=== PATIENT | female | born 1950 | race Caucasian/White ===

== ENCOUNTER → 2018-04-03 09:43 | Outpatient (CLI) | payer MEDICARE, OTHER, SELFPAY ==
--- NOTE | 2018-04-03 15:39 | PFTCOMP ---
COMPLETE PULMONARY FUNCTION TEST INTERPRETATION Brief HPI: Patient is a 68 year old female, currently under the care of myself, who presents to [facility] for complete pulmonary function tests secondary to diagnosis of COPD. Respiratory therapist reports good effort and reproducible results. Interpretation: Forced expiration spirometry shows a severe large airways obstructive ventilatory defect with an FEV1 of 49% predicted. There is no significant bronchodilator response by strict ATS criteria. Spirograms are of good quality and plateau slowly, indicating slowly emptying areas of the lungs. The respiratory flow volume loop shows decreased expiratory flow rates at all lung volumes consistent with airway obstruction. Lung volumes by body plethysmography show a normal total lung capacity at 5.54 L, 102% predicted. FRC and RV are elevated out of proportion. Lung volume measurements are consistent with air-trapping. Diffusion capacity by carbon monoxide is decreased at 39% predicted. The airway resistance is elevated. Compared to previous pulmonary function tests from 03/27/2017, there has been no significant change. Impression: Irreversible severe large airways obstructive ventilatory defect with a symmetric reduction diffusing capacity and no significant loom changer the last year.
--- NOTE | 2018-04-03 15:42 | PFTCOMP_ITS ---
COMPLETE PULMONARY FUNCTION TEST INTERPRETATION Brief HPI: Patient is a 68 year old female, currently under the care of myself, who presents to [facility] for complete pulmonary function tests secondary to diagnosis of COPD. Respiratory therapist reports good effort and reproducible results. Interpretation: Forced expiration spirometry shows a severe large airways obstructive ventilatory defect with an FEV1 of 49% predicted. There is no significant bronchodilator response by strict ATS criteria. Spirograms are of good quality and plateau slowly, indicating slowly emptying areas of the lungs. The respiratory flow volume loop shows decreased expiratory flow rates at all lung volumes consistent with airway obstruction. Lung volumes by body plethysmography show a normal total lung capacity at 5.54 L , 102% predicted. FRC and RV are elevated out of proportion. Lung volume measurements are consistent with air-trapping. Diffusion capacity by carbon monoxide is decreased at 39% predicted. The airway resistance is elevated. Compared to previous pulmonary function tests from 03/27/2017, there has been no significant change. Impression: Irreversible severe large airways obstructive ventilatory defect with a symmetric reduction diffusing capacity and no significant slip box changer the last year.
== END ==
PROVIDERS: Family Provider Family Medicine; PCP Family Medicine; Visit Provider Internal Medicine Critical Care Medicine
DX: J44.9 Chronic obstructive pulmonary disease, unspecified (principal)
CPT/HCPCS: 94060; 94726; 94729

== ENCOUNTER → 2018-04-04 10:44 | Outpatient (CLI) | payer MEDICARE, OTHER, SELFPAY ==
[2018-04-04 11:22] VITALS: PULSE 101; PULSE 102; PULSE 103; PULSE 76; PULSE 80; PULSE 90; PULSE 95; PULSE 98; O2SAT 89; O2SAT 90; O2SAT 93; O2SAT 94
--- NOTE | 2018-04-04 15:12 | WT_ITS ---
PSN 6 Minute Walk Test - 6 Minute Walk Test 6 Minute Walk Test: 6 Minute Walk Test PSN:6-Minute Walk Test Start: 04/04/18 11: 21 Freq: Status: Active Protocol: RESP.6MINW Document 04/04/18 11:22 RENÉE (Rec: 04/04/18 11:25 RENÉE [id number]) 6 Minute Walk Test Date Performed 04/04/18 Time Performed 11:00 Height 5 ft 7 in Weight: 77.111 kg Weight in Pounds 170.[address]: Ho Coto Assistive device used: None Pre-test Oxygen Delivery Method Room Air Pulse Ox (%) 94 Pulse Rate (60-100 beats/min) 76 Dyspnea Aubrey Scale (0-10) 0 Exertion Aubrey Scale (6-20) 6 1st minute Oxygen Delivery Method Room Air Pulse Ox (%) 93 Pulse Rate (60-100 beats/min) 90 2nd minute Oxygen Delivery Method Room Air Pulse Ox (%) 89 Pulse Rate (60-100 beats/min) 95 3rd minute Oxygen Delivery Method Room Air Pulse Ox (%) 89 Pulse Rate (60-100 beats/min) 98 4th minute Oxygen Delivery Method Room Air Pulse Ox (%) 89 Pulse Rate (60-100 beats/min) 101 H 5th minute Oxygen Delivery Method Room Air Pulse Ox (%) 90 Pulse Rate (60-100 beats/min) 102 H 6th minute Oxygen Delivery Method Room Air Pulse Ox (%) 90 Pulse Rate (60-100 beats/min) 103 H Dyspnea Aubrey Scale (0-10) 0 Exertion Aubrey Scale (6-20) 13 Post-test Oxygen Delivery Method Room Air Pulse Ox (%) 93 Pulse Rate (60-100 beats/min) 80 Full Laps Walked 15 Partial Lap, Number of Tiles Walked 12 Total Distance Walked (ft) 897 - Interpretation Interpretation: The patient was able to ambulate 897 feet over the course of 6 minutes on room air with no assistive devices or breaks. The patient did experience significant desaturation as low as 89% with reflexive tachycardia. These findings are consistent with a respiratory limitation exercise tolerance. - Recommendations Recommendations: No supplemental oxygen is indicated at this time. However, patient will need to be followed closely given level of desaturation.
== END ==
PROVIDERS: Family Provider Family Medicine; PCP Family Medicine; Visit Provider Internal Medicine Critical Care Medicine
DX: J44.9 Chronic obstructive pulmonary disease, unspecified (principal)
CPT/HCPCS: 94618

== ENCOUNTER → 2018-12-26 12:46 | Outpatient (CLI) | payer MEDICARE, OTHER, SELFPAY ==
[2018-04-11 09:46] VITALS: BMI 26.9
--- NOTE | 2018-12-26 12:49 | CT_ITS ---
STUDY: CT CHEST WITHOUT CONTRAST REASON FOR EXAM: Female, 68 years old. Follow-up lung nodule with history of COPD. RADIATION DOSAGE (If Supplied By Facility): CTDIvol = ( 9.97 ) mGy, DLP = ( 356.39 ) mGycm TECHNIQUE: Transaxial imaging was performed without the administration of intravenous contrast material. : Sagittal 2-D MPR Individualized dose optimization techniques were used for this CT. COMPARISON: No prior imaging is available for comparison.. FINDINGS: Supraclavicular: Small thyroid nodules. No dominant nodule. Body wall soft tissues: No acute process. Upper abdomen: No acute process. Osseous structures: Kyphoscoliosis, mild thoracic spondylosis, osteopenia. No acute osseous process. Mediastinum: Normal esophagus. A few small chronic-appearing lymph nodes are present in the mediastinum, none pathologically enlarged. There is no evidence of hilar lymphadenopathy. Cardiovascular: No cardiomegaly or pericardial effusion. Mild cardiac calcifications are visible in the proximal circumflex distribution. Nondilated aorta with mild arch atherosclerosis. Ectatic central pulmonary arteries, main pulmonary artery 3.19 cm. Lungs: Moderate features of centrilobular emphysema at the apices. Biapical pleural parenchymal scar. There are a few small isolated pulmonary nodules, measuring less than 4 mm. Anterior aspect of the right upper lobe and left upper lobe anterior segments, small subsegmental regions of interstitial reticulation and tree-in-bud nodular opacity in a pattern consistent with sequela from prior infectious process. A similar region of clustered tree-in-bud nodular opacities and parenchymal reticulation is present at the base of the left lower lobe, chronic. There is mild bronchial wall thickening bibasilar, associated with mild central bronchiectasis. Right lower lobe bronchus, inspissated or aspirated material, bubbly, over a very short segment measuring approximately 11 mm. This process is centered on axial series 4 image 66. Fine image saved to the PACS archive. Associated with more prominent bronchial wall thickening in that segment and in the subsegmental bronchi just distal. Consistent with acute on chronic bronchiolitis. CT/Chest without Contrast IMPRESSION: Emphysema. Scattered small pulmonary nodules less than 4 mm. Nonspecific. Based on the ACR lung RADS criteria, follow-up low-dose chest CT is recommended in 1 year for surveillance purposes. Evidence of acute on chronic bronchial wall inflammation, bronchitis, associated with chronic tree-in-bud nodular opacities in a few pulmonary segments, most prominent at the left lung base. Active bronchial inflammation/infection is present in the right lower lobe. The features elsewhere are likely chronic. Electronically Signed: Lukasz Murillo MD at 14:10 EST Tel , Service support ,
== END ==
PROVIDERS: Family Provider Family Medicine; PCP Family Medicine; Referring Provider Nurse Practitioner Acute Care; Visit Provider Nurse Practitioner Acute Care
DX: R91.1 Solitary pulmonary nodule (principal)
CPT/HCPCS: 71250

== ENCOUNTER → 2019-04-16 | Outpatient (CLI) | payer MEDICARE, OTHER, SELFPAY ==
[2019-01-09 10:32] VITALS: BMI 27.8
--- NOTE | 2019-04-16 15:46 | PFTCOMP_ITS ---
COMPLETE PULMONARY FUNCTION TEST INTERPRETATION Brief HPI: Patient is a 69 year old female, currently under the care of myself, who presents to [facility] for complete pulmonary function tests secondary to diagnosis of COPD. Respiratory therapist reports good effort and reproducible results. Interpretation: Forced expiration spirometry shows a severe large airways obstructive ventilatory defect with an FEV1 of 49% predicted. There is a significant bronchodilator response in FVC by strict ATS criteria. Spirograms are of good quality and plateau slowly, indicating slowly emptying areas of the lungs. The respiratory flow volume loop shows decreased expiratory flow rates at all lung volumes consistent with airway obstruction. Lung volumes by body plethysmography show a normal total lung capacity at 4.99 L, 92% predicted. FRC and RV are elevated out of proportion. Lung volume measurements are consistent with air-trapping. Diffusion capacity by carbon monoxide is decreased at 42% predicted. The airway resistance is elevated. Compared to previous pulmonary function tests from 04/03/2018, there has been no significant change. Impression: Partially reversible severe large airways obstructive ventilatory defect with a symmetric reduction diffusing capacity, consistent with patient's diagnosis of COPD.
== END | disposition home or self-care (01) ==
PROVIDERS: Family Provider Family Medicine; PCP Family Medicine; Referring Provider Nurse Practitioner Acute Care; Visit Provider Nurse Practitioner Acute Care
DX: J44.9 Chronic obstructive pulmonary disease, unspecified (principal)
CPT/HCPCS: 94060; 94726; 94729

== ENCOUNTER → 2019-04-19 | Outpatient (CLI) | payer MEDICARE, OTHER, SELFPAY ==
[2019-01-09 10:32] VITALS: BMI 27.8
[2019-04-19 12:58] VITALS: PULSE 100; PULSE 102; PULSE 106; PULSE 108; PULSE 109; PULSE 80; PULSE 83; PULSE 87; O2SAT 91; O2SAT 92; O2SAT 93; O2SAT 95
--- NOTE | 2019-04-19 14:35 | PCM.PSN.6M ---
PSN 6 Minute Walk Test - 6 Minute Walk Test 6 Minute Walk Test: 6 Minute Walk Test PSN:6-Minute Walk Test Start: 04/19/19 12:58 Freq: Status: Active Protocol: RESP.6MINW Document 04/19/19 12:58 [facility] (Rec: 04/19/19 13:01 [facility] [id number]) 6 Minute Walk Test Date Performed 04/19/19 Time Performed 11:00 Height 5 ft 7 in Weight: 77.111 kg Weight in Pounds 170.[address]: Beatriz Saul Assistive device used: None Pre-test Oxygen Delivery Method Room Air Pulse Ox (%) 95 Pulse Rate (60-100 beats/min) 83 Dyspnea Aubrey Scale (0-10) 0 1st minute Oxygen Delivery Method Room Air Pulse Ox (%) 93 Pulse Rate (60-100 beats/min) 87 Dyspnea Aubrey Scale (0-10) 0 2nd minute Oxygen Delivery Method Room Air Pulse Ox (%) 91 Pulse Rate (60-100 beats/min) 100 Dyspnea Aubrey Scale (0-10) 0 3rd minute Oxygen Delivery Method Room Air Pulse Ox (%) 92 Pulse Rate (60-100 beats/min) 102 H Dyspnea Aubrey Scale (0-10) 1 4th minute Oxygen Delivery Method Room Air Pulse Ox (%) 91 Pulse Rate (60-100 beats/min) 106 H Dyspnea Aubrey Scale (0-10) 1 5th minute Oxygen Delivery Method Room Air Pulse Ox (%) 91 Pulse Rate (60-100 beats/min) 109 H Dyspnea Aubrey Scale (0-10) 1 6th minute Oxygen Delivery Method Room Air Pulse Ox (%) 91 Pulse Rate (60-100 beats/min) 108 H Dyspnea Aubrey Scale (0-10) 1 Post-test Oxygen Delivery Method Room Air Pulse Ox (%) 95 Pulse Rate (60-100 beats/min) 80 Dyspnea Aubrey Scale (0-10) 0 Full Laps Walked 19 Partial Lap, Number of Tiles Walked 12 Total Distance Walked (ft) 1133 - Interpretation Interpretation: The patient was able to ambulate 1133 feet over the course of 6 minutes on room air with no assistive devices or breaks. The patient did desaturate as low as 91% and had some reflexive tachycardia. These findings are consistent with a respiratory limitation to exercise tolerance. - Recommendations Recommendations: No supplemental oxygen is indicated at this time, but patient will need to be followed closely given level of desaturation.
== END | disposition home or self-care (01) ==
LOC: PSN 11:09
PROVIDERS: Referring Provider Nurse Practitioner Acute Care; Visit Provider Nurse Practitioner Acute Care
DX: J44.9 Chronic obstructive pulmonary disease, unspecified (principal)
CPT/HCPCS: 94618

== ENCOUNTER → 2020-06-03 | Outpatient (CLI) | payer MEDICARE, OTHER, SELFPAY ==
[2019-10-28 09:57] VITALS: BMI 27.6
--- NOTE | 2020-06-04 08:57 | PFT ---
INTRODUCTION: The patient is a 70-year-old female who presents for pulmonary function studies secondary to a diagnosis of COPD. Respiratory therapy reports good patient effort. Bronchodilators were used during testing. INTERPRETATION: Forced expiration spirometry demonstrates the presence of a severe large airways obstructive ventilatory defect. There was no significant response to aerosolized bronchodilators. Spirograms are of good quality and do not plateau indicating slow emptying of the lungs. Body plethysmography was performed and revealed an elevated RV to 145% of predicted, indicative of underlying air trapping. Diffusing capacity by single breath CO is reduced at 43% of predicted. IMPRESSION: Irreversible severe large airways obstructive ventilatory defect with associated air trapping and symmetric reduction in diffusing capacity.
== END | disposition home or self-care (01) ==
PROVIDERS: PCP Family Medicine; Referring Provider Nurse Practitioner Acute Care; Visit Provider Nurse Practitioner Acute Care
DX: J44.9 Chronic obstructive pulmonary disease, unspecified (principal)
CPT/HCPCS: 94060; 94726; 94729

== ENCOUNTER → 2020-06-09 | Outpatient (CLI) | payer MEDICARE, OTHER, SELFPAY ==
[2019-10-28 09:57] VITALS: BMI 27.6
[2020-06-09 14:02] VITALS: PULSE 77; PULSE 78; PULSE 92; PULSE 93; PULSE 94; PULSE 95; PULSE 96; O2SAT 86; O2SAT 90; O2SAT 91; O2SAT 92; O2SAT 93; O2SAT 94
--- NOTE | 2020-06-09 14:04 | CPS ---
Patient started testing on room air, does not wear oxygen at home. By the 1st minute, SpO2 86%. Placed patient on 2 lpm oxygen and recovered to 92%. Patient walked the rest of the test on 2 lpm O2 without desaturations below 90%. Patient states she has an appointment with Dr. Coto next week and would like to discuss oxygen setup with him then. Explained the importance of maintaining an SpO2 >90% with the patient and she verbalizes understanding.
--- NOTE | 2020-06-10 06:40 | PCM.PSN.6M ---
PSN 6 Minute Walk Test - 6 Minute Walk Test 6 Minute Walk Test: 6 Minute Walk Test PSN:6-Minute Walk Test Start: 06/09/20 14:02 Freq: Status: Active Protocol: RESP.6MINW Document 06/09/20 14:02 RENÉE (Rec: 06/09/20 14:07 RENÉE [id number]) 6 Minute Walk Test Date Performed 06/09/20 Time Performed 13:30 Height 5 ft 6 in Weight: 77.111 kg Weight in Pounds 170.[address]: Ho Coto Assistive device used: None Pre-test Oxygen Delivery Method Room Air Pulse Ox (%) 90 Pulse Rate (60-100 beats/min) 78 Dyspnea Aubrey Scale (0-10) 0.5 Exertion Aubrey Scale (6-20) 6 1st minute Oxygen Delivery Method Room Air Pulse Ox (%) 86 Pulse Rate (60-100 beats/min) 92 2nd minute Oxygen Flow Rate (L/min) (L/min) 2 Oxygen Delivery Method Nasal Cannula Pulse Ox (%) 94 Pulse Rate (60-100 beats/min) 93 3rd minute Oxygen Flow Rate (L/min) (L/min) 2 Oxygen Delivery Method Nasal Cannula Pulse Ox (%) 92 Pulse Rate (60-100 beats/min) 94 4th minute Oxygen Flow Rate (L/min) (L/min) 2 Oxygen Delivery Method Nasal Cannula Pulse Ox (%) 90 Pulse Rate (60-100 beats/min) 95 5th minute Oxygen Flow Rate (L/min) (L/min) 2 Oxygen Delivery Method Nasal Cannula Pulse Ox (%) 91 Pulse Rate (60-100 beats/min) 94 6th minute Oxygen Flow Rate (L/min) (L/min) 2 Oxygen Delivery Method Nasal Cannula Pulse Ox (%) 91 Pulse Rate (60-100 beats/min) 96 Dyspnea Aubrey Scale (0-10) 1 Exertion Aubrey Scale (6-20) 13 Post-test Oxygen Flow Rate (L/min) (L/min) 2 Oxygen Delivery Method Nasal Cannula Pulse Ox (%) 93 Pulse Rate (60-100 beats/min) 77 Full Laps Walked 12 Partial Lap, Number of Tiles Walked 0 Total Distance Walked (ft) 708 06/09/20 14:04 Cardiopulmonary Services by Rachel Avery Patient started testing on room air, does not wear oxygen at home. By the 1st minute, SpO2 86%. Placed patient on 2 lpm oxygen and recovered to 92%. Patient walked the rest of the test on 2 lpm O2 without desaturations below 90%. Patient states she has an appointment with Dr. Coto next week and would like to discuss oxygen setup with him then. Explained the importance of maintaining an SpO2 >90% with the patient and she verbalizes understanding. Initialized on 06/09/20 14:04 - END OF NOTE - Interpretation Interpretation: The patient was noted to be 90% on room air at rest. The patient did desaturate to 86% in the first minute of ambulation. Patient was placed on 2 L nasal cannula with improvement at 92% was able to complete the walking study. In total, the patient traveled 708 feet over the course of 6 minutes with the assistance of one break. These findings are consistent with a respiratory limitation exercise tolerance. - Recommendations Recommendations: No supplemental oxygen is needed at rest, but patient should be using 2 L nasal cannula with any exertion.
== END | disposition home or self-care (01) ==
LOC: PSN 13:17
PROVIDERS: PCP Family Medicine; Referring Provider Nurse Practitioner Acute Care; Visit Provider Nurse Practitioner Acute Care
DX: J44.9 Chronic obstructive pulmonary disease, unspecified (principal)
CPT/HCPCS: 94618

== ENCOUNTER → 2020-11-23 13:13 | Outpatient (CLI) | payer MEDICARE, OTHER, SELFPAY ==
[2020-06-16 05:45] VITALS: BMI 28.5
--- NOTE | 2020-11-23 13:15 | CT_ITS ---
STUDY: CT CHEST WITHOUT CONTRAST- LOW DOSE SCREENING PROTOCOL REASON FOR EXAM: Female, 70 years old. Current smoker. 51 pack per year history. No current symptoms of lung cancer or pulmonary infection. Shared decision-making with referring PCP documented in patient''s record. RADIATION DOSAGE (If Supplied By Facility): CTDIvol = ( 3.02 ) mGy, DLP = ( 100.05 ) mGycm TECHNIQUE: Low dose screening CT examination performed from the base of the neck to the upper abdomen. Sagittal and coronal reformatted images performed. Sagittal and coronal MIP images provided. The measurements provided are average, rounded measurements per ACR guidelines. COMPARISON: 12/26/2018 FINDINGS: No change in bilateral apical scarring. Mild emphysematous changes. Mild diffuse cylindrical bronchiectasis and bronchial wall thickening. No noncalcified nodule or mass. There is no demonstrated pleural abnormality. Normal heart and pericardium. There are calcifications of the coronary arteries. Normal mediastinum. Normal hilar regions. Normal unenhanced pulmonary arteries. There is atherosclerotic calcification of the aortic arch with tortuosity and elongation of the aortic arch and descending thoracic aorta. Normal osseous structures. There is no demonstrated abnormality of the visualized upper abdomen. CT/Low Dose CT Lung Screening IMPRESSION: 1. No significant indeterminate incidental findings requiring additional imaging. 2. Incidental findings include mild emphysema, cylindrical bronchiectasis and bronchial wall thickening, and bilateral apical scarring.. ASSESSMENT CATEGORY: LungRADS 1 - Negative. Continue annual screening with LDCT in 12 months, per established ACR guidelines. Electronically Signed: Lukasz Ruby MD at 17:36 EST Tel , Service support ,
== END ==
PROVIDERS: PCP Family Medicine; Referring Provider Nurse Practitioner Acute Care; Visit Provider Nurse Practitioner Acute Care
DX: F17.210 Nicotine dependence, cigarettes, uncomplicated (principal); Z12.2 Encounter for screening for malignant neoplasm of respiratory organs
CPT/HCPCS: 71271

== ENCOUNTER 2021-11-12 09:55 | Outpatient (CLI) | payer MEDICARE, OTHER, SELFPAY ==
[2021-11-12 10:32] LABS: Anion Gap 5 (5-15); BUN 9 mg/dL (7-18); BUN/Creat Ratio 14.3 RATIO (10-20); Calcium,Total 8.8 mg/dL (8.5-10.1); Chloride 111 mmol/L (98-107); Creatinine, Serum 0.63 mg/dL (0.55-1.02); EST Glomerular Filtration Rate 98 mL/min (>60); Est Glom Filt Rate - Afr Amer 119 mL/min (>60); Glucose 118 mg/dL (74-106); Potassium 4.1 mmol/L (3.5-5.1); Sodium Level 140 mmol/L (136-145)
== END 2021-11-12 23:59 | disposition short-term general hospital (02) ==
LOC: PAVLAB 09:57
PROVIDERS: Referring Provider Nurse Practitioner Acute Care; Visit Provider Nurse Practitioner Acute Care
DX: R06.02 Shortness of breath (principal); R76.0 Raised antibody titer; Z86.16 Personal history of COVID-19
CPT/HCPCS: 36415; 80048; 83880; 86769

== ENCOUNTER → 2022-02-22 | Outpatient (CLI) | payer MEDICARE, OTHER, SELFPAY ==
--- NOTE | 2022-02-23 06:59 | PFT ---
INTRODUCTION: The patient is a 72-year-old female that presents for pulmonary function studies secondary to a diagnosis of COPD. Respiratory therapy reported good patient effort. Bronchodilators were used during testing. INTERPRETATION: Forced expiration spirometry demonstrates the presence of a very severe large airways obstructive ventilatory defect. There was no significant response to aerosolized bronchodilators. Spirograms are of fair quality but do not plateau indicating slow emptying of the lungs. Body plethysmography was performed and revealed a decreased TLC to 2.85 L, 57% of predicted, indicative of a severe restrictive ventilatory impairment. Diffusing capacity by single breath CO is severely reduced at 31% of predicted. When compared to prior pulmonary function studies from May 2020 there has been significant worsening in the patient's FEV1 and DLCO. IMPRESSION: Irreversible very severe mixed ventilatory defect with symmetric reduction in diffusing capacity. There has been interval worsening in the patient's PFT since May 2020, as noted above.
== END | disposition home or self-care (01) ==
LOC: PSN 07:54
PROVIDERS: Referring Provider Internal Medicine Critical Care Medicine; Visit Provider Internal Medicine Critical Care Medicine
DX: J44.9 Chronic obstructive pulmonary disease, unspecified (principal)
CPT/HCPCS: 94060; 94726; 94729

== ENCOUNTER → 2022-02-24 | Outpatient (CLI) | payer MEDICARE, OTHER, SELFPAY ==
[2022-02-24 11:57] VITALS: PULSE 100; PULSE 101; PULSE 102; PULSE 81; PULSE 86; PULSE 93; PULSE 96; O2SAT 87; O2SAT 92; O2SAT 93; O2SAT 94; O2SAT 95
--- NOTE | 2022-02-24 12:00 | CPS ---
Patient has home oxygen established through [employer]. She was placed on room air prior to testing. RA Spo2 at 87% therefore walk began with patient on 2LPM continuous flow. She remained on this throughout remainder of test. She declined need for rest breaks.
--- NOTE | 2022-02-25 08:01 | WT_ITS ---
PSN 6 Minute Walk Test 6 Minute Walk Test 6 Minute Walk Test: 6 Minute Walk Test PSN:6-Minute Walk Test Start: 02/24/22 11:56 Freq: Status: Active Protocol: RESP.6MINW Document 02/24/22 11:57 [facility] (Rec: 02/24/22 12:02 [facility] [id number]) 6 Minute Walk Test Date Performed 02/24/22 Time Performed 11:30 Height 5 ft 5 in Weight: 69.853 kg Weight in Pounds 154.[address]: Ho Coto Assistive device used: None Pre-test Oxygen Delivery Method Room Air Pulse Ox (%) 87 Pulse Rate (60-100 beats/min) 81 Dyspnea Aubrey Scale (0-10) 3 Reported Symptoms Increased Work of Breathing 1st minute Oxygen Flow Rate (L/min) (L/min) 2 Oxygen Delivery Method Nasal Cannula Pulse Ox (%) 94 Pulse Rate (60-100 beats/min) 93 Dyspnea Aubrey Scale (0-10) 4 Number of Rests Taken 0 Reported Symptoms Increased Work of Breathing 2nd minute Oxygen Flow Rate (L/min) (L/min) 2 Oxygen Delivery Method Nasal Cannula Pulse Ox (%) 92 Pulse Rate (60-100 beats/min) 96 Dyspnea Aubrey Scale (0-10) 5 Number of Rests Taken 0 Reported Symptoms Increased Work of Breathing 3rd minute Oxygen Flow Rate (L/min) (L/min) 2 Oxygen Delivery Method Nasal Cannula Pulse Ox (%) 94 Pulse Rate (60-100 beats/min) 100 Dyspnea Aubrey Scale (0-10) 5 Number of Rests Taken 0 Reported Symptoms Increased Work of Breathing 4th minute Oxygen Flow Rate (L/min) (L/min) 2 Oxygen Delivery Method Nasal Cannula Pulse Ox (%) 93 Pulse Rate (60-100 beats/min) 101 H Dyspnea Aubrey Scale (0-10) 5 Number of Rests Taken 0 Reported Symptoms Increased Work of Breathing 5th minute Oxygen Flow Rate (L/min) (L/min) 2 Oxygen Delivery Method Nasal Cannula Pulse Ox (%) 93 Pulse Rate (60-100 beats/min) 102 H Dyspnea Aubrey Scale (0-10) 5 Number of Rests Taken 0 Reported Symptoms Increased Work of Breathing 6th minute Oxygen Flow Rate (L/min) (L/min) 2 Oxygen Delivery Method Nasal Cannula Pulse Ox (%) 94 Pulse Rate (60-100 beats/min) 101 H Dyspnea Aubrey Scale (0-10) 5 Number of Rests Taken 0 Reported Symptoms Increased Work of Breathing Post-test Oxygen Flow Rate (L/min) (L/min) 2 Oxygen Delivery Method Nasal Cannula Pulse Ox (%) 95 Pulse Rate (60-100 beats/min) 86 Dyspnea Aubrey Scale (0-10) 3 Reported Symptoms Increased Work of Breathing Full Laps Walked 11 Partial Lap, Number of Tiles Walked 0 Total Distance Walked (ft) 649 02/24/22 12:00 Cardiopulmonary Services by Aileen Will Patient has home oxygen established through [employer]. She was placed on room air prior to testing. RA Spo2 at 87% therefore walk began with patient on 2LPM continuous flow. She remained on this throughout remainder of test. She declined need for rest breaks. Initialized on 02/24/22 12:00 - END OF NOTE Interpretation Interpretation: The patient ambulated 649 feet over the course of 6 minutes beginning on room air without assistive devices. Pretesting oxygen saturation was noted to be 87% on room air. Therefore, 2 L/min of oxygen was applied to begin the test. Oxygen saturations subsequently improved to 94%. With ambulation, the sulema oxygen saturation was 92%. Recommendations Recommendations: 2 L/min of supplemental oxygen should be utilized both at rest and with exertion.
== END | disposition home or self-care (01) ==
LOC: PSN 11:07
PROVIDERS: Visit Provider Internal Medicine Critical Care Medicine
DX: J44.9 Chronic obstructive pulmonary disease, unspecified (principal)
CPT/HCPCS: 94618

== ENCOUNTER → 2022-06-13 | Outpatient (CLI) | payer MEDICARE, OTHER, SELFPAY ==
--- NOTE | 2022-06-13 12:47 | ECHOCS_ITS ---
Reason For Study: PHTN Procedure This was a 2D Doppler, Color Flow transthoracic echocardiogram. The exam was of adequate technical quality. Exam performed in department. Left Ventricle Normal LV size. Left ventricular systolic function is normal. The estimated ejection fraction is 65 %. No evidence for diastolic dysfunction. No regional wall motion abnormalities noted. Right Ventricle Normal RV size. Normal systolic function. Atria Normal left atrium. Normal right atrium. No doppler evidence for ASD. Mitral Valve There is no mitral annular calcification. Normal mitral valve. Trivial mitral valve insufficiency. Tricuspid Valve Normal tricuspid valve. Mild to moderate (1-2+) tricuspid valve insufficiency. Right ventricular systolic pressure estimated to be 41 mmHg. Aortic Valve Trisinus/trileaflet aortic valve. Normal aortic valve. Pulmonic Valve The pulmonic valve is not well visualized. Great Vessels Normal sized aortic root. Pericardium/Pleural No pericardial effusion. MMode/2D Measurements & Calculations RVDd: 2.8 cm Ao root diam: 3.4 cm LAV(MOD-sp4): 31.4 ml LVAd ap4: 20.3 cm2 SV(MOD-sp4): 28.5 ml SV(sp4-el): 31.3 ml LVLd ap4: 7.6 cm EDV(MOD-sp4): 43.1 ml EDV(sp4-el): 45.7 ml LVAs ap4: 10.8 cm2 LVLs ap4: 6.8 cm ESV(MOD-sp4): 14.6 ml ESV(sp4-el): 14.5 ml EF(MOD-sp4): 66.1 % EF(sp4-el): 68.4 % LA A4 area: 13.9 cm2 LA dimension(2D): 4.1 cm RA A4 area: 15.4 cm2 Time Measurements MV dec time: 0.26 sec Doppler Measurements & Calculations MV E max rachid: 85.0 cm/sec Lat Peak E' Rachid: 11.5 cm/sec Med Peak E' Rachid: 7.8 cm/sec MV A max rachid: 80.5 cm/sec E/E' lat: 7.4 E/E' med: 10.9 MV E/A: 1.1 MV V2 max: 99.6 cm/sec Ao V2 max: 176.2 cm/sec MV max P.0 mmHg MV dec slope: 325.8 cm/sec2 Ao max P.4 mmHg MV V2 mean: 69.3 cm/sec Ao V2 mean: 123.9 cm/sec MV mean P.1 mmHg Ao mean P.0 mmHg MV V2 VTI: 34.8 cm Ao V2 VTI: 42.6 cm LV V1 max: 145.3 cm/sec PA V2 max: 97.5 cm/sec TR max rachid: 288.2 cm/sec LV V1 max P.4 mmHg PA V2 mean: 70.7 cm/sec TR max P.2 mmHg LV V1 mean P.1 mmHg LV V1 mean: 107.2 cm/sec LV V1 VTI: 33.9 cm ECHO/Echo Complete W/ Contrast Interpretation Summary Left ventricular systolic function is normal. The estimated ejection fraction is 65 %. Trivial mitral valve insufficiency. Mild to moderate (1-2+) tricuspid valve insufficiency. Right ventricular systolic pressure estimated to be 41 mmHg. No evidence for diastolic dysfunction. Ordering Physician: Ho Coto Referring Physician: Ho Coto Performed By: Johana Bradley RCS
== END | disposition home or self-care (01) ==
LOC: CVS 12:46
PROVIDERS: Referring Provider Internal Medicine Critical Care Medicine; Visit Provider Internal Medicine Critical Care Medicine
DX: R06.02 Shortness of breath (principal)
CPT/HCPCS: 93306; C8929

== ENCOUNTER → 2022-11-15 | Outpatient (CLI) | payer MEDICARE, OTHER, SELFPAY | END | disposition home or self-care (01) | LOC: SL 15:09 | PROVIDERS: Visit Provider Nurse Practitioner Acute Care | DX: Z00.00 Encounter for general adult medical examination without abnormal findings (principal) ==

== ENCOUNTER → 2023-03-24 | Outpatient (CLI) | payer MEDICARE, OTHER, SELFPAY ==
--- NOTE | 2023-03-24 14:23 | CT_ITS ---
STUDY: LOW DOSE CT LUNG CANCER SCREENING REASON FOR EXAM: Female, 73 years old. Current smoker. One pack per day for 50 years. RADIATION DOSAGE (If Supplied By Facility): CTDIvol = ( 2.01 ) mGy, DLP = ( 76.75 ) mGycm TECHNIQUE: No contrast was administered. Low dose technique was utilized (average mAS-38 and kVp 120). 1.25 mm axial source images with a slice interval of 1.25-mm were reconstructed in lung windows. 2.5 mm axial source images with a slice interval of 2.5-mm were reconstructed in lung windows. 5.0 mm axial source images with a slice interval of 5.0-mm were reconstructed in soft tissue windows. COMPARISON: Comparison is made with prior study dated November 23, 2020. NODULES: No suspicious nodules are seen. Emphysema: Stable appearance of the nodular scarring in the lung apices. Hyperinflation. Emphysematous changes involving both lungs worse in the upper lobes with centrilobular emphysematous changes. Stable bronchiectasis and scarring in the anterior medial aspect of the right middle lobe. Stable increased reticular markings in the left lower lobe with scarring. Endobronchial lesion: Unremarkable Aorta: Atherosclerotic plaque formation. CORONARY ARTERIES: Coronary artery calcification is seen. Heart: Unremarkable Pulmonary artery: Unremarkable Mediastinal nodes: Small benign-appearing mediastinal lymph nodes. Other chest and abdominal findings: CT/Low Dose CT Lung Screening IMPRESSION: Lung-RADS category 2 - Continue annual screening with LDCT in 12 months. IMPORTANT NOTES FOR USE: ACR Lung-RADS Version 1.1 Assessment Categories Release Date: 2018 Category: Coded 0-4 bases on nodule(s) with highest degree of suspicion. Negative screen is defined as categories 1 and 2; a positive screen is defined as categories 3 and 4. Category 3 and 4A nodules that are unchanged on interval CT should be coded as category 2, and individuals returned to screening in 12 months. Category 4X: Category 3 or 4 nodules with additional imaging findings that increase the suspicion of lung cancer, such as spiculation, GGN that doubles in size in 1 year, enlarged lymph notes, etc. Category Modifiers: S (significant finding unrelated to lung cancer) Electronically Signed: Justin Jones MD at 15:31 EDT ,
== END | disposition home or self-care (01) ==
LOC: CT 14:21
PROVIDERS: PCP Family Medicine; Referring Provider Nurse Practitioner Acute Care; Visit Provider Nurse Practitioner Acute Care
DX: F17.210 Nicotine dependence, cigarettes, uncomplicated (principal)
CPT/HCPCS: 71271